=== PATIENT | female | born 1960 | race Caucasian/White ===

== ENCOUNTER 2017-02-02 21:08 | Emergency (ER) | payer BC ==
[~2017-02-02] VITALS: Ht 154.9 cm; Wt 69.5 kg
[2017-02-02 21:39] VITALS: Ht 154.9 cm; Wt 69.5 kg
[2017-02-02] MEDS ORDERED: ONDANSETRON 4 MG INJ IV STA (22:13)
[2017-02-02] MEDS ORDERED: morphine 4 MG/ML VIAL IV STA (22:13)
[2017-02-02] MEDS ORDERED: RAMI2.5C36 PO (22:21)
[2017-02-02] MEDS ORDERED: METF500T4 PO (22:21)
--- NOTE | 2017-02-02 22:22 | ERD ---
ER Documentation Chief Complaint Date/Time DATE: 02/02/17 TIME: 22:19 Chief Complaint HIGH BLOOD PRESSURE AT HOME. SEVERE HEADACHE HPI [age]-year-old female presents here in emergency department for complaints of severe headache started 3 days ago, got worse tonight. Patient describes the pain is sharp throbbing pain, 8/10 scale, radiates from the back of the head to the frontal area. Patient also has been having runny nose and nasal congestion clear nasal discharge. Patient does not have any fever or chills. Patient did not have any any head injury. Patient has history of hypertension, tubal pressure home was high and elevated. Patient currently takes indication for hypertension. Patient denies any blurry vision. Patient denies any focal weakness, numbness or tingling. Patient denies any dizziness. Patient is here today because of severe pain. Patient has never had this type of pain before. ROS All systems reviewed and are negative except as per history of present illness. Medications Home Meds Active Scripts Ibuprofen* (Motrin*) 600 Mg Tab, 600 MG PO Q6H Y for PAIN AND OR ELEVATED TEMP, #30 TAB Prov:MARCIANO WONG NP 02/03/17 Amoxicillin/Potassium Clav (Amox-Clav 875-125 mg Tablet) 875-125 mg Tab, 1 TAB PO BID for 10 Days, #20 TAB Prov:MARCIANO WONG NP 02/03/17 Cetirizine Hcl* (Zyrtec*) 10 Mg Capsule, 10 MG PO DAILY, #30 TAB.CHEW Prov:MARCIANO WONG NP 02/03/17 Fluticasone Propionate (Flonase Allergy Relief) 9.9 Ml Wallace.susp, 1 SPRAY NASAL BID, #1 BOTTLE TO EACH NOSTRIL Prov:MARCIANO WONG NP 02/03/17 Hydrocodone/Acetaminophen (Hixson 5-325 Tablet) 1 Each Tablet, 1 TAB PO Q6H Y for SEVERE PAIN LEVEL 7-10, #20 TAB Prov:MARCIANO WONG NP 02/03/17 Reported Medications Metformin* (Glucophage*) Unknown Strength Tab, PO DAILY, #20 TAB 02/02/17 Ramipril (Ramipril) Unknown Strength Capsule, PO BID, CAP 02/02/17 Allergies Allergies: Coded Allergies: levofloxacin (Verified Allergy, Unknown, rash, swelling, 02/02/17) PMhx/Soc History of Surgery: Yes (left hip replacement) Anesthesia Reaction: No Hx Neurological Disorder: No Hx Respiratory Disorders: No Hx Cardiac Disorders: Yes (htn, high cholesterol) Hx Psychiatric Problems: No Hx Miscellaneous Medical Probl: Yes (dm) Hx Alcohol Use: No Hx Substance Use: No Hx Tobacco Use: No Smoking Status: Never smoker FmHx Family History: No coronary disease, No diabetes, No other Physical Exam Vitals Vital Signs Date Time Temp Pulse Resp B/P Pulse Ox O2 Delivery O2 Flow Rate FiO2 02/02/17 21:39 98.7 95 22 145/92 99 Physical Exam GENERAL: The patient is well developed and appropriate for usual state of health, in no apparent distress. CHEST: Clear to auscultation bilaterally. There are no rales, wheezes or rhonchi. HEART: Regular rate and rhythm. No murmurs, clicks, rubs or gallops. No S3 or S4. ABDOMEN: Soft, nontender and nondistended. Good bowel sounds. No rebound or guarding. No gross peritonitis. No gross organomegaly or masses. No Long sign or McBurney point tenderness. BACK: No midline or flank tenderness. EXTREMITIES: Equal pulses bilaterally. There is no peripheral clubbing, cyanosis or edema. No focal swelling or erythema. Full range of motion. Grossly neurovascularly intact. NEURO: Alert and oriented. Cranial nerves 2-12 intact. Motor strength in all 4 extremities with 5/5 strength. Sensation grossly intact. Normal speech and gait. Negative Romberg sign. Negative pronator drift SKIN: There is no apparent rash or petechia. The skin is warm and dry. HEMATOLOGIC AND LYMPHATIC: There is no evidence of excessive bruising or lymphedema. No gross cervical, axillary, or inguinal lymphadenopathy. Results 24 hrs Current Medications Medications (Trade) Dose Ordered Sig/Elyse Route PRN Reason Start Time Stop Time Status Last Admin Dose Admin Sodium Chloride (NS) 500 ml @ 500 mls/hr Q1H ONCE IV 02/02/17 22:30 02/02/17 23:29 DC 02/02/17 22:38 Morphine Sulfate (morphine) 4 mg ONCE STAT IV 02/02/17 22:13 02/02/17 22:16 DC 02/02/17 22:38 Ondansetron HCl (Zofran Inj) 4 mg ONCE STAT IV 02/02/17 22:13 02/02/17 22:16 DC 02/02/17 22:38 Acetaminophen/ Butalbital/ Caffeine (Fioricet) 1 tab ONCE ONCE PO 02/02/17 22:30 02/02/17 22:31 DC 02/02/17 22:38 Ketorolac Tromethamine (Toradol) 30 mg ONCE STAT IV 02/02/17 23:38 02/02/17 23:39 DC 02/02/17 23:45 Dexamethasone (Decadron) 10 mg ONCE ONCE IV 02/03/17 00:00 02/03/17 00:01 UNV Patient was given medication for pain here in emergency department, after treatment, patient verbalized feeling much better. Patient's pain is improved. Zofran was given to prevent vomiting. IV fluids was given. PROCEDURE: CT BRAIN WITHOUT CONTRAST CLINICAL INDICATION: 56-year-old female with headaches. TECHNIQUE: The study was performed utilizing [employer] 64-slice CT scanner. Direct axial sections were obtained from the foramen magnum to the vertex without the use of intravenous contrast material. Sagittal and coronal reformations were obtained. Automated exposure control and iterative reconstruction techniques were utilized for this examination. The images were viewed on a PACS workstation. CTD/vol = 43.8 mGy; Total Exam DLP = 720.2 mGy- cm. COMPARISON: None. FINDINGS: There is mild prominence of the sulci and cisternal spaces consistent with diffuse volume loss. Otherwise, the ventricles have a normal shape and position. There is no evidence for mass effect or midline shift. There are no intracranial areas of abnormal attenuation. There is no evidence for acute intra or extra-axial blood. The bony calvarium is intact. There is marked opacification of the right sphenoid sinus with minimal residual aeration. The mastoid air cells are without significant soft tissue. IMPRESSION: 1. Mild diffuse volume loss. 2. Opacified right sphenoid sinus. .Omar Keller MD, MD Date Time Electronically viewed and signed by .Omar Keller MD, MD on 02/02/2017 23:29 .M/ CC: MARCIANO WONG NP . I discussed this case with my attending physician, Dr. Fountain, really patient' s CT scan of the brain and reviewed patient's physical examination and case with me, he recommended to give more pain medication, agrees with giving IV Toradol and suggested to give IV Decadron after treatment, patient has opacified sinus, as his recommendation most likely has acute bacterial rhinosinusitis, will be given Augmentin as per his recommendation. No suspicion for neurological emergencies at this time. Patient's neurologic exam is normal. No visualized aneurysm or hematoma or bleeding at this time. No mass effect noted. No tumors noted. Outpatient treatment with pain medication was his recommendation at this time. Return to ER precautions for stroke symptoms or any other worsening symptoms. Procedures/MDM Medical Decision Making: Patient's symptoms of headache nonspecific at this time , can be from tension headache, can be also from the sinusitis that is seen in the CT scan. Patient will be treated with Augmentin for this, all be given ibuprofen and Hixson for pain, also will be given Flonase to help with symptoms and Zyrtec. Patient was advised to follow with primary care doctor in 1-2 days, possibly see a neurologist specialist of headache continues to persist. There is low suspicion for neurological emergencies at this time since patients neurologic exam is normal. Patient did not have any altered level consciousness , vomiting, changes in balance or memory and did not have any head injury. Patients CT scan of the head does not show any neurological emergencies at this time. Departure Diagnosis: Primary Impression: Sinusitis Sinusitis location: sphenoidal Chronicity: acute Recurrence: not specified as recurrent Qualified Code: J01.30 - Acute sphenoidal sinusitis, recurrence not specified Additional Impression: Headache Headache type: unspecified Headache chronicity pattern: acute headache Intractability: not intractable Qualified Code: R51 - Acute nonintractable headache, unspecified headache type Condition: Stable Patient Instructions: Acute Sinusitis, Self-Care for Headaches MARCIANO WONG NP Feb 02, 2017 22:22
[2017-02-02] MEDS ORDERED: SOD CHLORIDE 0.9% 500 ML IV ONE (22:30)
[2017-02-02] MEDS ORDERED: ACET/BUTAL/CAFF TAB PO ONE (22:30)
--- NOTE | 2017-02-02 23:29 | RADRPT ---
PROCEDURE: CT BRAIN WITHOUT CONTRAST CLINICAL INDICATION: 56-year-old female with headaches. TECHNIQUE: The study was performed utilizing [email or web address] VCT 64-slice CT scanner. Direct axial sections were obtained from the foramen magnum to the vertex without the use of intravenous contrast material. Sagittal and coronal reformations were obtained. Automated exposure control and iterativ e reconstruction techniques were utilized for this examination. The images were viewed on a PACS [employer]. CTD/vol = 43.8 mGy; Total Exam DLP = 720.2 mGy-cm. COMPARISON: None. FINDINGS: There is mild prominence of the sulci and cisternal spaces consistent with diffuse volume loss. Oth erwise, the ventricles have a normal shape and position. There is no evidence for mass effect or mid line shift. There are no intracranial areas of abnormal attenuation. There is no evidence for acut e intra or extra-axial blood. The bony calvarium is intact. There is marked opacification of the rig ht sphenoid sinus with minimal residual aeration. The mastoid air cells are without significant sof t tissue. IMPRESSION: 1. Mild diffuse volume loss. 2. Opacified right sphenoid sinus. .Omar Keller MD, Date Time Electronically viewed and signed by .Omar Keller MD, on 02/02/2017 23:29 .M/
[2017-02-02] MEDS ORDERED: KETOROLAC 30 MG INJ IV STA (23:38)
[2017-02-03] MEDS ORDERED: HYDR-906 PO
[2017-02-03] MEDS ORDERED: DEXAMETHASONE 10 MG/ML 1 ML INJ IV ONE
[2017-02-03] MEDS ORDERED: IBUP-1542 PO
[2017-02-03] MEDS ORDERED: CETI10CA PO
[2017-02-03] MEDS ORDERED: FLUT9.9S NASAL
[2017-02-03] MEDS ORDERED: AMOX1TAB10 PO
[2017-02-03 00:38] VITALS: BP 138/62; PULSE 68; RESP 16
== END 2017-02-03 00:39 | disposition home or self-care (01) ==
LOC: FTE 21:08
DX: J01.30 Acute sphenoidal sinusitis, unspecified (principal); I10 Essential (primary) hypertension; E11.9 Type 2 diabetes mellitus without complications; Z79.84 Long term (current) use of oral hypoglycemic drugs; Z96.642 Presence of left artificial hip joint
CPT/HCPCS: 70450; 96361; 96374; 96375; 99285; J1100; J1885; J2270; J2405; J7040; Z7610